=== PATIENT | female | born 1980 | race Caucasian/White ===

== ENCOUNTER 2016-08-20 10:40 | Outpatient (CLI) | payer OTHER ==
[~2016-08-20] VITALS: Ht 170.2 cm; Wt 46.8 kg
[~2016-08-20 10:40] MED LIST: PRENAT PO
[2016-08-20 10:53] VITALS: BP 135/96; PULSE 109; RESP 18; Ht 170.2 cm; Wt 46.8 kg
--- NOTE | 2016-08-20 12:08 | CONS ---
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 Size of the cyst has doubled ( 4 cm mid 2014 to 8 cm late 2015). May be amenable to endoscopic ultrasound- guided stenting/drainage. No indication for acute surgical intervention unless interventional GI not successful. Explained in detail and answered all questions. With above assessment, I have recommended the followin. Referral to interventional GI with plan for EUS-guided pancreatic duct stenting, possible transduodenal cyst drainage. I asked my office to assist with facilitating an expedited visit with Dr. Anthony Granados at [facility] (ccd on this letter) 2. F/u with us 2-3 months after above 3. Surgical intervention if above fails or for emergency picture 4. I was very clear that the patient needs to make drastic changes in her lifestyle since she is still drinking. I strongly advised her not to take any alcohol or substances that contain alcohol. She will likely need the support of her primary care physician team. Also, likely to remain disabled given her current cyst and abdominal symptoms until it has been adequately dealt with by hopefully non-surgical means as above 5. Possible consideration for laparoscopic cholecystectomy in the future and after above Thank you again for allowing us to participate in the care of this very pleasant lady and her wonderful family. If there are any questions, please feel free to call me at [phone]. TOTAL VISIT TIME: 45 minutes of which more than half was spent in [id number] discussion with the patient (no family present for this visit) as well as coordination of care between multiple physicians and providers. 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 Pancreas protocol CT 06/08/16 showed: Extensive calcification is seen throughout the pancreas and compatible with sequelae of chronic pancreatitis. There is a large 8.6 cm round circumscribed cyst of the pancreatic head most compatible with a large pseudocyst. Comorbidities: 1. Gestational Hypertension. 2. Ectopic Feb 2015. 3. Episode of pancreatitis Mar 2016. 5. H. Pylori. 6. 06/07/16. HISTORY OF PRESENT ILLNESS: The patient is a very pleasant 36-year-old lady, well known to me from prior admission to [facility] for her in May 2016, A1 with comorbid issue of ETOH abuse (full bottle of hard liquor or more per day up to 1.5 yrs ago), complicated by prior pancreatitis, being followed for known pancreas cyst, s/p 06/06/16. Visiting for recommended follow up. + pain; disabled; resumed drinking to control pain and be able to take care of her child. Gallbladder in place, but no history of biliary issues. ALLERGIES: NKDA. MEDICATIONS: 1. Pepcid 2. MVI 3. Acetaminophen SOCIAL HISTORY: + previous heavy ETOH (1 or more bottle of hear liquor per day up to 1.5 years ago). + tob. - IVDU FAMILY HISTORY: No major reported medical, surgical or malignancy in the family. REVIEW OF SYSTEMS: No pertinent positives or negatives in a complete 14 point review of systems PHYSICAL EXAMINATION: GENERAL: The patient appears to be a very pleasant lady of [place] descent, appearing stated age, laying in bed comfortably and in no acute distress. BMI 16.2 (previously 17.19 May 2016). VITAL SIGNS: AVSS (see EHR) HEENT: Her head is normocephalic and atraumatic. Her extraocular muscles and hearing are grossly intact bilaterally and symmetrically. Her sclerae are nonicteric. Her oral cavity is clear, and her oral mucosa appeared to be pink and moist. She has fair to poor dentition. NECK: Supple. There is no lymphadenopathy or JVD. There is no submental, submandibular or supraclavicular lymphadenopathy. CHEST: Rises symmetrically with each breath, and she is breathing comfortably. There are no audible wheezes, rales or rhonchi on the gross exam. HEART: Her carotid pulses are palpable bilaterally and symmetrically in her neck. Radial pulse is palpable on the right wrist. EXTREMITIES: Lower extremities contain no pitting edema around the ankles bilaterally and symmetrically. ABDOMEN: Soft, tender to palpation near mid abdomen where a mass can be felt, corresponding to known pancreas head cyst. There is no distention. There is no evidence of organomegaly, caput medusae, engorged subcutaneous veins or presence of ascites. No peritoneal signs or guarding, no evidence of hernia. SKIN: Appears to be pink and feels warm to touch. NEUROLOGIC: She is awake, alert and follows commands appropriately. LABORATORY VALUES: See below. IMAGING: Pertinent findings were reviewed above. Note that I personally reviewed all the available images, and I agree in general with their overall reported findings. Consultation Date/Type/Reason Admit Date/Time Initial Consult Date Exam/Review of Systems Vital Signs Vitals Vital Signs Date Time Temp Pulse Resp B/P Pulse Ox O2 Delivery O2 Flow Rate FiO2 08/20/16 10:53 98.5 109 18 135/96 96 Room Air MALINDA WALTERS M.D. Aug 20, 2016 12:03
== END 2016-08-20 17:00 | disposition home or self-care (01) ==
LOC: HPC 10:40
PROVIDERS: ATTEND Transplant Surgery
DX: K86.1 Other chronic pancreatitis (principal); K86.3 Pseudocyst of pancreas; F10.10 Alcohol abuse, uncomplicated; Y90.9 Presence of alcohol in blood, level not specified
CPT/HCPCS: G0463

== ENCOUNTER 2017-12-16 00:55 | Emergency (ER) | END 2017-12-16 05:28 | disposition home or self-care (01) ==

== ENCOUNTER 2018-04-16 15:26 | Emergency (ER) | END 2018-04-16 17:47 | disposition home or self-care (01) ==

== ENCOUNTER 2018-08-31 12:54 | Inpatient (IN) | payer OTHER ==
[~2018-08-31] VITALS: Ht 170.2 cm; Wt 53.6 kg
[~2018-08-31 12:54] MED LIST changes: -PRENAT PO; +TRAM50TA2 PO
[2018-08-31 12:58] VITALS: Ht 170.2 cm; Wt 53.6 kg
[2018-08-31 13:08] VITALS: BP 172/107; PULSE 83; RESP 18
[2018-08-31] MEDS ORDERED: PREN-93 PO (13:08)
--- NOTE | 2018-08-31 13:52 | TRIAGE ---
OB Triage Datetime Report Generated by CPN: 08/31/2018 13:52 Datetime: 08/31/2018 13:05 Assessment Type: Triage EGA: 32.4 Maternal Assessment Level of Consciousness: Fully Conscious DTR's/Clonus: DTRs 2+; No Clonus Headache: Denies Blurred Vision: No Respiratory Effort: Unlabored; Regular Rhythm; Equal Expansion Breath Sounds, Left: Clear and Equal Breath Sounds, Right: Clear and Equal Nausea/Vomiting: Denies RUQ Epigastric Pain: Denies Lower Extremities Edema: None Degree: None Upper Extremities Edema: None Degree: None Facial Edema: None Fall Risk Assessment History of Falling: (0) No Secondary Diagnosis: (0) No Ambulatory Aid: (0) Bedrest/Nurse Assist IV Therapy: (0) No Gait: (0) Normal/Bedrest/Immobile Mental Status: (0) Oriented to Own Ability Fall Score: 0 Fall Risk Score Definition: No Risk: No action required Datetime: 08/31/2018 13:04 Time of Arrival: 08/31/2018 12:51 Arrived By: Ambulatory; Wheelchair Arrived From: Home Chief Complaint: PT. HERE C/O VAG. BLEEDING AND H/A X 6 DAYS Movement: Decreased Contractions: Denies/Absent Rupture of Membranes: Denies Vaginal Bleeding: Moderate Vaginal Discharge: Denies Recent Sexual Intercouse: Denies Abdominal Trauma: Not Applicable Patient Complaints: Cramping Time Provider Notified: 08/31/2018 13:46 Provider Notified: DELSHAD Datetime: 08/31/2018 13:01 Labor Evaluation Monitor Mode: External Heart Rate Monitor Mode: External US
[2018-08-31] MEDS: LACTATED RINGER'S 1,000 ML IV SCH ×2 (14:12→18:55)
[2018-08-31] MEDS: DEXAMETHASONE 4 MG/ML 5 ML INJ IM SCH (15:42)
--- NOTE | 2018-08-31 18:23 | HP ---
Date/Time of Note Date/Time of Note DATE: 08/31/18 TIME: 18:20 OB - History Hx of Present Chief Complaint: vaginal bleeding Estimated Due Date: Oct 22, 2018 : 3 Para: 1 Spontaneous : 1 Therapeutic : 0 Care: Good Care Ultrasounds: Normal mid trimester US Obstetrical Complications: None Medical Complications: None Past Family/Social History * Past Medical, Surgical, Family and Obstetric Histories reviewed from chart. OB Admission Exam Vital Signs Vital Signs Vital Signs Date Temp Pulse Resp B/P (MAP) Pulse Ox O2 O2 Flow FiO2 Time Delivery Rate 08/31/18 98.0 83 18 172/107 Room Air 13:08 (128) Physical Exam HEENT: WNL Heart: Rhythm Normal Lungs: Clear, Equal Abdomen: WNL Extremities: Normal Reflexes: Normal Heart Rate: 120's Accelerations: Accelerations Present Decelerations: No Decelerations Varibility: Moderate Last 72 hours Lab Results CBC & BMP 08/31/18 14:00 Liver Function Test 08/31/18 14:00 Alanine Aminotransferase (ALT/SGPT) 12 L Albumin 3.3 Alkaline Phosphatase 132 H Aspartate Amino Transf (AST/SGOT) 18 Direct Bilirubin 0.00 Total Protein 6.2 OB Assessment/Plan Reason for admission: other Other Assessment: R/O preeclampsia Plan: Other Other plan: Admit PIH panel 24 hour urine collection Corticosteroids Perinatology consult Neonatology consult TREY SANCHEZ MD Aug 31, 2018 18:23
[2018-09-01] MEDS: LACTATED RINGER'S 1,000 ML IV SCH ×3 (03:30→21:13)
[2018-09-01] MEDS: DEXAMETHASONE 4 MG/ML 5 ML INJ IM SCH ×2 (04:16→15:18)
--- NOTE | 2018-09-01 20:35 | QN ---
Documentation Comment No complaint Afebrile VSS BP improved Strikp Reactive Continue to monitor BP. TREY SANCHEZ MD Sep 01, 2018 20:35
--- NOTE | 2018-09-01 21:10 | CONS ---
Consultation Date/Type/Reason Admit Date/Time Aug 31, 2018 at 13:38 Date of Consultation: Sep 01, 2018 Type of Consult Medicine Reason for Consultation Requested by Dr. Morales to certified lactation counselor mother regarding anticipated course and potential complications of delivery at 32 completed weeks gestation of a watts male fetus having received steroids. Met with mother at bedside. Mother is a 38 yo [id number] with EDC 10/22/2018 ( EGA 32 5/7 wks). Uncomplicated , except for chronic hypertension with non-compliance with medication and scant bleeding @ 3 months. No further bleeding until 08/31 when mother experienced bright red vaginal bleeding and was noted to be hypertensive. U/S 08/31 c/w dates with normal amniotic fluid indices and no evidence of abruption. BPP 02/17. No further bright red bleeding and now passing scant old blood. No further hypertension and 24 hr urinary protein WNL (187 mg/24 hrs). Completes course of Dexamethasone @ 0400 hrs 09/02. No magnesium or antibiotics. Discussed anticipated course of 32 wk gestation infants and high survival rates. Described complications primarily related to lung maturation and the need for pulmonary support, feeding difficulties associated with sharon-motor coordination, and infection. Briefly discussed less common complications related to apnea of prematurity, PDA, IVH, and termite exterminator neurosensory impairment. Explained that duration of hospitalization typically approaches 36 weeks corrected age but is dependent on cardiopulmonary stability, ability to nipple all feeds and demonstrate weight gain. Mother appeared to understand and asked appropriate questions. Assured mother of availability to any any further questions should they arise. Total time spent reviewing records and [id number] meeting with mother 40 minutes. Date/Time of Note DATE: 09/01/18 TIME: 20:17 Past Medical History Home Meds Reported Medications Vit No.124/Iron/FA ( Vitamin Tablet) 1 Each Tablet, 1 EACH PO DAILY, TAB 08/31/18 Discontinued Scripts Tramadol HCl (Tramadol HCl) 50 Mg Tablet, 50 MG PO Q6 PRN for SEVERE PAIN LEVEL 7-10, #20 TAB Prov:SONIA GARZA NP 12/16/17 Medications Current Medications Lactated Ringer's 1,000 ml @ 125 mls/hr Q8H IV Last administered on 09/01/18at 12:36; Admin Dose 125 MLS/HR; Start 08/31/18 at 13:51 Dexamethasone (Decadron) 6 mg Q12H IM Last administered on 09/01/18at 15:18; Admin Dose 6 MG; Start 08/31/18 at 14:00; Stop 09/02/18 at 02:01 Allergies: Coded Allergies: No Known Allergy (Unverified , 04/08/16) Social History Smoking Status: Current every day smoker Exam/Review of Systems Exam Vitals Vital Signs Date Temp Pulse Resp B/P (MAP) Pulse Ox O2 O2 Flow FiO2 Time Delivery Rate 08/31/18 98.0 83 18 172/107 Room Air 13:08 (128) Intake and Output 08/31/18 08/31/18 09/01/18 1414:59 22:59 06:59 IntakeIntake Total 1000 ml 1000 ml OutputOutput Total 250 ml BalanceBalance 750 ml 1000 ml Results Result Diagram: 09/01/18 0524 09/01/18 0524 Results 24hrs Laboratory Tests Test 09/01/18 05:24 09/01/18 16:00 White Blood Count 7.6 Red Blood Count 3.20 L Hemoglobin 10.1 L Hematocrit 30.2 L Mean Corpuscular Volume 94.4 Mean Corpuscular Hemoglobin 31.6 Mean Corpuscular Hemoglobin Concent 33.4 Red Cell Distribution Width 11.9 Platelet Count 212 Mean Platelet Volume 10.2 Immature Granulocytes % 0.500 H Neutrophils % 67.6 Lymphocytes % 24.6 Monocytes % 6.9 Eosinophils % 0.1 Basophils % 0.3 Nucleated Red Blood Cells % 0.0 Immature Granulocytes # 0.040 H Neutrophils # 5.1 Lymphocytes # 1.9 Monocytes # 0.5 Eosinophils # 0.0 Basophils # 0.0 Nucleated Red Blood Cells # 0.0 Sodium Level 137 Potassium Level 3.6 Chloride Level 107 Carbon Dioxide Level 21 Anion Gap 9 # Blood Urea Nitrogen 8 Creatinine 0.41 L Est Glomerular Filtrat Rate mL/min > 60 Glucose Level 137 # Uric Acid 4.3 Calcium Level 8.5 Total Bilirubin 0.0 L Direct Bilirubin 0.00 Indirect Bilirubin 0.0 Aspartate Amino Transf (AST/SGOT) 13 L Alanine Aminotransferase (ALT/SGPT) 17 Alkaline Phosphatase 98 Total Protein 5.2 #L Albumin 2.5 L Globulin 2.70 Albumin/Globulin Ratio 0.92 Urine Random Creatinine 59.01 Urine Collection Duration 24 Urine Total Volume 24 Hours 1700 Urine Creatinine Timed 24 Creatinine Clearance 169.9 H Urine Total Volume (Protein) 1700 Urine Total Protein 24 Hour 187.0 Medications Medication Current Medications Lactated Ringer's 1,000 ml @ 125 mls/hr Q8H IV Last administered on 09/01/18at 12:36; Admin Dose 125 MLS/HR; Start 08/31/18 at 13:51 Dexamethasone (Decadron) 6 mg Q12H IM Last administered on 09/01/18at 15:18; Admin Dose 6 MG; Start 08/31/18 at 14:00; Stop 09/02/18 at 02:01 EJ MOJICA MD Sep 01, 2018 21:09
--- NOTE | 2018-09-02 01:02 | CONS ---
DATE OF ADMISSION: 08/31/2018 DATE OF CONSULTATION: 09/01/2018 HISTORY OF PRESENT ILLNESS: The patient is a G2, P1 at 32 weeks and 5 days, admitted with elevated s evere range blood pressures. Her blood pressures initially she had 1 or 2 severe range blood pressur es; however after that has been normal to moderate range. She does not have symptoms. She has been chronic hypertensive for about 5 years and she has been on and off on medication, but currently is no t on medication nor she been during the . She currently lives in a fdc with her 2-year- old and her . OBSTETRIC HISTORY: Chronic hypertension. Her first was a vaginal delivery with no complic ations. VITAL SIGNS: Currently, blood pressure is 142/90. Physical examination deferred. heart tones are reassuring for gestational age. LABORATORY RESULTS: AST, ALT, platelets are normal. A 24-hour urine for protein is pending. IMPRESSION: Intrauterine at 32 weeks and 5 days with chronic hypertension, pending 24-hour urine for protein result, is currently severe hypertension at the time of admission with the rest is in the normal to moderate range without symptoms. She lives in a fdc, has a 2-year-old to take care of and overall she has a stressful situation ob viously, noncompliant with medication than she was on it. She is receiving dexamethasone. RECOMMENDATIONS: I do recommend the patient to stay in-house at least until 34 weeks. Delivery is recommended if she has severe superimposed preeclampsia then delivery at 34 weeks. If sh e has any type of symptoms, GI, neurologic or right upper quadrant pain or platelet count of less keyur n 100,000 or nonreassuring heart tones, then delivery at the time of diagnosis. In the absence of any of them, then delivery at 37 weeks. I do recommend social service consult to help the patient navigate her overall taking care of her 2-y ear-old, so she is able to stay in-house until 34 weeks. Again with chronic hypertension or mild preeclampsia, delivery at 37 weeks. If with severe preeclamp khanh, delivery at 34 weeks unless there are GI, neurologic or right upper quadrant pain or respiratory symptoms or nonreassuring heart tone or thrombocytopenia with platelet count of less than 100, 000, then delivery at the time of diagnosis. Dictated By: KELBY BENITO/HEIDI Conf#: [id number] [facility]#: [id number] CC: MARLEN FLORES MD; TREY SANCHEZ MD;*[facility]*
[2018-09-02] MEDS ORDERED: ACETAMINOPHEN 500 MG TAB PO ONE (01:30)
[2018-09-02] MEDS: DEXAMETHASONE 4 MG/ML 5 ML INJ IM SCH (04:31)
[2018-09-02] MEDS: LACTATED RINGER'S 1,000 ML IV SCH ×3 (05:03→22:25)
--- NOTE | 2018-09-02 19:11 | QN ---
Documentation Comment No complaint Afebrile VSS Strip Reactive Stable Continue with in hospital care Social service consult Amoxicillin for UTI Monistat for Tawana TREY SANCHEZ MD Sep 02, 2018 19:11
[2018-09-02] MEDS: AMOXICILLIN 500 MG CAP PO SCH (21:55)
[2018-09-02] MEDS ORDERED: AL HYDROX/MG HYDROX/SIMETH 30 ML CUP PO PRN (22:00)
[2018-09-02] MEDS: MICONAZOLE 100 MG VAG SUPP VAG SCH (22:10)
[2018-09-02] MEDS: ACETAMINOPHEN 325 MG TAB PO PRN (23:02)
[2018-09-03] MEDS: AMOXICILLIN 500 MG CAP PO SCH ×3 (06:57→21:51)
[2018-09-03] MEDS: LACTATED RINGER'S 1,000 ML IV SCH ×3 (07:03→23:41)
[2018-09-03] MEDS: ACETAMINOPHEN 325 MG TAB PO PRN ×2 (09:52→22:01)
[2018-09-03] MEDS: MICONAZOLE 100 MG VAG SUPP VAG SCH (21:00)
[2018-09-04] MEDS: AMOXICILLIN 500 MG CAP PO SCH ×3 (05:59→22:54)
[2018-09-04] MEDS: LACTATED RINGER'S 1,000 ML IV SCH ×2 (08:16→16:01)
--- NOTE | 2018-09-04 14:16 | QN ---
Documentation Comment No complaint Afebrile VSS Strip Reactive Plt, AST and ALT normal Continue with in hospital care. TREY SANCHEZ MD Sep 04, 2018 14:16
[2018-09-04] MEDS ORDERED: LABETALOL 200 MG TAB PO ONE (15:00)
[2018-09-04] MEDS: ACETAMINOPHEN 325 MG TAB PO PRN (16:59)
[2018-09-04] MEDS: MICONAZOLE 100 MG VAG SUPP VAG SCH (21:00)
[2018-09-04] MEDS: LABETALOL 200 MG TAB PO SCH (22:19)
[2018-09-05] MEDS: LACTATED RINGER'S 1,000 ML IV SCH ×4 (00:17→21:51)
[2018-09-05] MEDS: AMOXICILLIN 500 MG CAP PO SCH ×3 (06:12→23:02)
[2018-09-05] MEDS: LABETALOL 200 MG TAB PO SCH ×2 (09:32→21:13)
--- NOTE | 2018-09-05 17:40 | QN ---
Documentation Comment No complaint Afebrile BP increased, labetalol was started to control BP Strip Reactive Continue with in hospital care. TREY SANCHEZ MD Sep 05, 2018 17:40
[2018-09-05] MEDS: ACETAMINOPHEN 325 MG TAB PO PRN (20:31)
[2018-09-05] MEDS: MICONAZOLE 100 MG VAG SUPP VAG SCH (21:13)
[2018-09-06] MEDS: LACTATED RINGER'S 1,000 ML IV SCH ×3 (00:50→21:51)
[2018-09-06] MEDS: AMOXICILLIN 500 MG CAP PO SCH ×3 (05:59→21:19)
[2018-09-06] MEDS: LABETALOL 200 MG TAB PO SCH ×2 (08:22→21:20)
[2018-09-06] MEDS: ACETAMINOPHEN 325 MG TAB PO PRN ×2 (09:53→21:22)
--- NOTE | 2018-09-06 19:32 | QN ---
Documentation Comment No complaint Afebrile VSS Strip Reactive stable Continue with in hospital care. TREY SANCHEZ MD Sep 06, 2018 19:32
[2018-09-06] MEDS: MICONAZOLE 100 MG VAG SUPP VAG SCH (21:23)
[2018-09-07] MEDS: AMOXICILLIN 500 MG CAP PO SCH (06:18)
[2018-09-07] MEDS: LABETALOL 200 MG TAB PO SCH (08:30)
[2018-09-07] MEDS: LACTATED RINGER'S 1,000 ML IV SCH (09:51)
[2018-09-07] MEDS ORDERED: LACTATED RINGER'S 1,000 ML IV SCH ×2 (11:06→16:16)
[2018-09-07] MEDS ORDERED: CEFAZOLIN 2 GM/50 ML (PMX) 50 ML IVPB ONE (11:09)
[2018-09-07] MEDS ORDERED: ONDANSETRON 4 MG INJ IV STA (11:16)
[2018-09-07] MEDS ORDERED: METOCLOPRAMIDE 10 MG INJ ONE (11:16)
[2018-09-07] MEDS ORDERED: ONDANSETRON 4 MG INJ ONE (11:17)
[2018-09-07] MEDS ORDERED: CITRIC ACID/NA CITRATE 30 ML CUP ONE (11:18)
[2018-09-07] MEDS ORDERED: METOCLOPRAMIDE 10 MG INJ IV ONE (11:20)
--- NOTE | 2018-09-07 11:24 | QN ---
Documentation Comment Patient c/o vaginal bleeding and pelvic pain. On exam, active vaginal bleeding noted. Patient was evaluated by Dr Pro ([facility]) who recommends to deliver the patient at this time. Patient is counseled for repeat . Risks, benefits and alternatives were explained to the patient who stated she understood and gave informed consent for the procedure. TREY SANCHEZ MD Sep 07, 2018 11:24
--- NOTE | 2018-09-07 11:29 | PREAC ---
Date/Time of Note Date/Time of Note DATE: 09/07/18 TIME: : Anesthesia Eval and Record Evaluation Time Pre-Procedure Interview DATE: 09/07/18 TIME: 11:27 Age 38 Sex female NPO: Other 1 hour Preoperative diagnosis repeat c section, bleeding Planned procedure c section Past Medical History Past Medical History: Includes Cardio: HTN Surgery & Anesthesia Issues No known issue Meds Anticoagulation: No Beta Cornelius within 24 hr: Yes Reported Medications Vit No.124/Iron/FA ( Vitamin Tablet) 1 Each Tablet, 1 EACH PO DAILY, TAB 08/31/18 Discontinued Scripts Tramadol HCl (Tramadol HCl) 50 Mg Tablet, 50 MG PO Q6 PRN for SEVERE PAIN LEVEL 7-10, #20 TAB Prov:SONIA GARZA SOCIAL SERVICES SPECIALIST 12/16/17 Current Medications Lactated Ringer's 1,000 ml @ 125 mls/hr Q8H IV Last administered on 09/07/18at 09:51; Admin Dose 125 MLS/HR; Start 08/31/18 at 13:51 Amoxicillin (Amoxicillin) 500 mg Q8 PO Last administered on 09/07/18at 06:18; Admin Dose 500 MG; Start 09/02/18 at 22:00 Miconazole (Monistat-7) 1 supp HS VAG Last administered on 09/06/18at 21:23; Admin Dose 1 SUPP; Start 09/02/18 at 21:00; Stop 09/08/18 at 21:01 Acetaminophen (Tylenol Tab) 650 mg Q6H PRN PO MILD PAIN(1-3)OR ELEVATED TEMP Last administered on 09/06/18at 21:22; Admin Dose 650 MG; Start 09/02/18 at 22:00 Al Hydrox/Mg Hydrox/Simethicone (Mag-Al Plus) 30 ml Q6H PRN PO GASTROINTESTINAL UPSET; Start 09/02/18 at 22:00 Labetalol HCl (Normodyne) 200 mg BID PO Last administered on 09/07/18at 08:30; Admin Dose 200 MG; Start 09/04/18 at 21:00 Lactated Ringer's 1,000 ml @ 125 mls/hr Q8H IV ; Start 09/07/18 at 11:06 Cefazolin Sodium/ Dextrose 50 ml @ 100 mls/hr ONCE IVPB ; Start 09/07/18 at 11:30 Oxytocin/Lactated Ringer's 500 ml @ 0 mls/hr ONCE PRN IV .VAGINAL BLEEDING; Start 09/07/18 at 11:30 Methylergonovine Maleate (Methergine) 0.2 mg ONCE PRN IM .VAGINAL BLEEDING; Start 09/07/18 at 11:30 Carboprost Tromethamine (Hemabate) 250 mcg ONCE PRN IM .VAGINAL BLEEDING; Start 09/07/18 at 11:30 Misoprostol (Cytotec) 1,000 mcg ONCE PRN VA .VAGINAL BLEEDING; Start 09/07/18 at 11:30 Citric Acid/ Sodium Citrate (Bicitra) 30 ml ONCE ONCE PO ; Start 09/07/18 at 11:30; Stop 09/07/18 at 11:31 Meds reviewed: Yes Allergies Coded Allergies: No Known Allergy (Unverified , 04/08/16) Allergies Reviewed: Yes Labs/Studies Labs Reviewed: Reviewed by anesthesiologist Result Diagram: 09/07/18 0633 09/07/18 0632 Laboratory Tests 09/07/18 06:32 Blood Bank Test 09/07/18 10:05 Antibody Screen NEGATIVE Blood Type O POSITIVE test: Positive Studies: ECG (n/a), CXR (n/a) Pre-procedure Exam Last vitals Vital Signs Date Temp Pulse Resp B/P (MAP) Pulse Ox O2 O2 Flow FiO2 Time Delivery Rate 09/05/18 98.5 21:14 Airway: Adequate mouth opening Mallampati: Mallampati I Teeth: Normal Lung: Normal Heart: Normal ASA Physical Status ASA physical status: 2 Emergency: E Planned Anesthetic Neuraxial: Spinal Planned Pain Management Sub-arachniod narcotics Pre-operative Attestations Prior to commencing anesthesia and surgery, the patient was re-evaluated, there was verification of: *The patient's identity *The results of appropriate recent lab work and preoperative vital signs *The above evaluation not changing prior to induction *Anesthetic plan, risk benefits, alternative and complications discussed with patient/family; questions answered; patient/family understands, accepts and wishes to proceed. SHEYLA CORONA MD Sep 07, 2018 11:29
[2018-09-07] MEDS ORDERED: CITRIC ACID/NA CITRATE 30 ML CUP PO ONE (11:30)
[2018-09-07] MEDS ORDERED: CEFAZOLIN 2 GM/50 ML (PMX) 50 ML IVPB SCH (11:30)
[2018-09-07] MEDS ORDERED: OXYTOCIN 30 UNITS/LR 500 ML IV PRN ×2 (11:30→16:30)
[2018-09-07] MEDS ORDERED: MISOPROSTOL 200 MCG TAB PR PRN ×2 (11:30→16:30)
[2018-09-07] MEDS ORDERED: METHYLERGONOVINE 0.2 MG INJ IM PRN (11:30)
[2018-09-07] MEDS ORDERED: CARBOPROST 250 MCG INJ IM PRN ×2 (11:30→16:30)
[2018-09-07] MEDS ORDERED: KETOROLAC 30 MG INJ ONE (11:34)
[2018-09-07] MEDS ORDERED: morphine SULFATE/PF (10 MG/10 ML) INJ ONE (11:34)
[2018-09-07] MEDS ORDERED: KETOROLAC 30 MG INJ IV PRN (12:30)
[2018-09-07] MEDS ORDERED: NALOXONE (0.4 MG/ML) INJ IV PRN (12:30)
[2018-09-07] MEDS ORDERED: DIPHENHYDRAMINE 50 MG INJ IV PRN ×2 (12:30)
[2018-09-07] MEDS ORDERED: ONDANSETRON 4 MG INJ IV PRN ×2 (12:30)
[2018-09-07] MEDS ORDERED: morphine 2 MG INJ IV PRN ×3 (12:30)
[2018-09-07] MEDS ORDERED: morphine (1 MG/ML) 10ML SYRINGE IV PRN ×3 (12:30)
[2018-09-07] MEDS ORDERED: FAMOTIDINE 20 MG INJ ONE (12:43)
[2018-09-07] MEDS ORDERED: OXYTOCIN 30 UNITS/LR 500 ML IV SCH ×2 (13:30→16:16)
--- NOTE | 2018-09-07 13:49 | OPR ---
Operative Report Planned Procedure Procedure date Sep 07, 2018 Procedure(s) Repeat low transverse Performed by Trey Sanchez MD Buffet Server: JORDAN JAMES M.D. 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 A Pfannenstiel incision was made through the abdomen an d carried down to the level of the fascia. The fascia was incised transversely and then the rectus muscle was dissected off the fascia and split bluntly in the midline. The peritoneum was the entered bluntly. The bladder flap was created and then a low segment transverse incision was made with a knife on the uterus until the amniotic fluid was encountered. The incision was widened with bandage scissors. A hand was inserted elevating the vertex and then the head delivered with assistance of fundal pressure.. The nares and oropharynx were bulb suctioned, and the remainder of the was delivered out of the maternal abdomen. . The cord was doubly clamped and cut, and the infant handed off to the awaiting resuscitation team who was present for delivery. The placenta was then manually extracted and the interior uterus was cleaned with a dry lap sponge. The uterus was exteriorized, and the incision of the uterus closed with a running interlocking stitch of Monocryl suture. The uterus was replaced in the maternal abdomen. The abdomen was cleared of clots. The peritoneum was closed with 2-0 Vicryl. The fascia was closed with a running suture of #1 Vicryl suture meeting in the midline. The subcutaneous tissue was made hemostatic with Bovie cautery, and the skin approximated using herrera. The patient tolerated the procedure well. All sponge and instrument counts were correct. She was taken to the recovery room in stable condition. TREY SANCHEZ MD Sep 07, 2018 13:49
[2018-09-07 16:15] VITALS: BP 133/80; PULSE 61; RESP 17
[2018-09-07] MEDS ORDERED: OXYCODONE/ACETAMINOPHEN (5/325) TAB PO PRN (16:30)
[2018-09-07] MEDS ORDERED: LANOLIN HPA 1 PKT TOP PRN (16:30)
[2018-09-07 19:25] VITALS: BP 131/80; PULSE 73; RESP 18
[2018-09-07] MEDS: SENNA/DOCUSATE NA (8.6MG/50MG) TAB PO SCH (21:00)
--- NOTE | 2018-09-07 21:06 | PAC ---
Date/Time of Note Date/Time of Note DATE: 09/07/18 TIME: 21:06 Post-Anesthesia Notes Post-Anesthesia Note Last documented vital signs Vital Signs Date Temp Pulse Resp B/P (MAP) Pulse Ox O2 O2 Flow FiO2 Time Delivery Rate 09/07/18 98.1 73 18 131/80 98 Room Air 19:25 (97) Activity: WNL Respiratory function: WNL Cardiovascular function: WNL Mental status: Baseline Pain reasonably controlled: Yes Hydration appropriate: Yes Nausea/Vomiting absent: No SHEYLA CORONA MD Sep 07, 2018 21:06
[2018-09-07] MEDS: KETOROLAC 30 MG INJ IV PRN (21:54)
[2018-09-07 23:50] VITALS: BP 120/75; PULSE 60; RESP 18
[2018-09-08] VITALS (13 sets, daily range): BP systolic 112–175; BP diastolic 60–100; PULSE 61–83; RESP 16–18
[2018-09-08] MEDS: LACTATED RINGER'S 1,000 ML IV SCH ×2 (00:46→09:12)
[2018-09-08] MEDS: KETOROLAC 30 MG INJ IV PRN (04:16)
--- NOTE | 2018-09-08 06:55 | OPPN ---
Date/Time of Note Date/Time of Note DATE: 09/08/18 TIME: 06:54 Anesthesia Follow up Anesthesia Follow up Last documented vital signs Vital Signs Date Temp Pulse Resp B/P (MAP) Pulse Ox O2 O2 Flow FiO2 Time Delivery Rate 09/08/18 97.8 72 18 112/68 98 Room Air 04:16 (83) Respiratory function: WNL Cardiovascular function: WNL Comments A 38 year emale. with spinal duramorph for post op pain POD#1 is doing well. No headache, itching, N/V, pain, neural deficit. SHEYLA CORONA MD Sep 08, 2018 06:55
[2018-09-08] MEDS: SENNA/DOCUSATE NA (8.6MG/50MG) TAB PO SCH ×2 (09:10→21:00)
[2018-09-08] MEDS: IBUPROFEN 800 MG TAB PO SCH ×2 (14:08→22:00)
[2018-09-08] MEDS: OXYCODONE/ACETAMINOPHEN (5/325) TAB PO PRN ×2 (18:43→22:36)
--- NOTE | 2018-09-08 19:15 | PN ---
Date/Time of Note Date/Time of Note DATE: 09/08/18 TIME: 19:12 OB Subjective Subjective Subjective POD#1 Patient is doing well. She denies nausea, vomiting, shortness of breath, chest pain, headache. She has been ambulating without difficulty, tolerating regular diet. Pain is well controlled on current medications OB Objective Objective Objective Vital Signs Date Temp Pulse Resp B/P (MAP) Pulse Ox O2 O2 Flow FiO2 Time Delivery Rate 09/08/18 98.2 73 16 145/84 Room Air 16:30 (104) 09/08/18 99 07:40 General: AAO X 3, comfortable, NAD, appropriate mood and affect. Heart: RRR +S1, +S2, no murmurs. Lungs: Clear to auscultation (B/L), no rales, rhonchi or wheezing. ABD: +BS. Soft, non-tender. Uterus 2 cm below umbilicus Incision: Clear, dry, intact. No erythema, drainage or induration. Flank: No CVA tenderness (B/L) LE: Mild edema. No clubbing, cyanosis, thigh or calf tenderness (B/L). Homans 'sign is negative OB Assessment/Plan Other plan: 38-year-old s/p repeat delivery at 33 weeks and 4 days for preeclampsia with severe features. POD#1 - AF, VSS - Encourage ambulation - Continue current management - Follow up with PATRICIA Hayes Sep 08, 2018 19:15
[2018-09-08] MEDS ORDERED: LABETALOL 200 MG TAB PO ONE (20:30)
[2018-09-09] MEDS: OXYCODONE/ACETAMINOPHEN (5/325) TAB PO PRN ×4 (02:30→21:47)
[2018-09-09 03:45] VITALS: BP 118/65; PULSE 75; RESP 18
[2018-09-09] MEDS: IBUPROFEN 800 MG TAB PO SCH ×3 (06:00→21:49)
[2018-09-09 08:45] VITALS: BP 143/70; PULSE 71; RESP 17
[2018-09-09] MEDS: LABETALOL 200 MG TAB PO SCH ×2 (08:47→21:47)
[2018-09-09] MEDS: SENNA/DOCUSATE NA (8.6MG/50MG) TAB PO SCH ×2 (08:49→21:00)
[2018-09-09 10:00] VITALS: BP 136/83; PULSE 85
[2018-09-09 16:00] VITALS: BP 139/84; PULSE 72; RESP 16
--- NOTE | 2018-09-09 18:33 | QN ---
Documentation Comment No complaint Afebrile VSS Abdomen soft Incision intact POD #2 Stable Continue present care. TREY SANCHEZ MD Sep 09, 2018 18:33
[2018-09-09 19:45] VITALS: BP 145/83; PULSE 73; RESP 18
[2018-09-10] VITALS (11 sets, daily range): BP systolic 132–173; BP diastolic 80–100; PULSE 73–85; RESP 14–18
[2018-09-10] MEDS: IBUPROFEN 800 MG TAB PO SCH ×3 (06:00→22:00)
[2018-09-10] MEDS ORDERED: DIPHTH/TET/ACEL PERTUSS (ADULT) 0.5 ML VIAL IM* ONE (09:00)
[2018-09-10] MEDS: LABETALOL 200 MG TAB PO SCH ×2 (09:13→20:27)
[2018-09-10] MEDS: SENNA/DOCUSATE NA (8.6MG/50MG) TAB PO SCH ×2 (09:13→21:00)
[2018-09-10] MEDS: OXYCODONE/ACETAMINOPHEN (5/325) TAB PO PRN ×2 (09:14→20:28)
[2018-09-10] MEDS ORDERED: LABETALOL 200 MG TAB PO ONE (16:00)
--- NOTE | 2018-09-10 20:07 | QN ---
Documentation Comment Patient's BP has been increasing despite being on labetalol. Patient requests to go home. Patient is counseled about the potential complications of HTN including but not limited to epilepsy, CVA. Patient is advised to stay in hospital for further management of her hypertension. TREY SANCHEZ MD Sep 10, 2018 20:07
[2018-09-11] VITALS (16 sets, daily range): BP systolic 137–174; BP diastolic 74–107; PULSE 63–99; RESP 14–18
[2018-09-11] MEDS: OXYCODONE/ACETAMINOPHEN (5/325) TAB PO PRN ×3 (05:33→18:21)
[2018-09-11] MEDS: IBUPROFEN 800 MG TAB PO SCH ×2 (06:00→14:00)
[2018-09-11] MEDS: NIFEdipine (XL) 30 MG TAB PO SCH ×2 (08:11→20:09)
[2018-09-11] MEDS: SENNA/DOCUSATE NA (8.6MG/50MG) TAB PO SCH (08:11)
[2018-09-11] MEDS ORDERED: WITCH HAZEL/GLYCERIN PAD PR PRN (13:00)
[2018-09-11] MEDS ORDERED: DIBUCAINE 1% 30 GM OINT TOP PRN (13:00)
--- NOTE | 2018-09-11 18:13 | QN ---
Documentation Comment No complaint Afebrile BP still elevated Patient was given Procardia and BP still elevated. Will ad hydralazine. TREY SANCHEZ MD Sep 11, 2018 18:13
--- NOTE | 2018-09-14 19:04 | DS ---
Date/Time of Note Date/Time of Note DATE: 09/14/18 TIME: 19:02 Obstetrical Discharge Record Final Diagnosis Final Diagnosis: delivered Other Final Diagnosis Preeclampsia with severe features Abruptio placentae Signed out against medical advice Section Section: Repeat Complications Other (Preeclampsia with severe features) Third Trimester Bleeding: Abruptio Condition on Discharge Physical Assessment Voiding: Yes Bowel Movement: Yes Breast: Soft, non-tender, Filling Fundus: Firm Calf Tenderness: No Patient Condition: Guarded TREY SANCHEZ MD Sep 14, 2018 19:04
== END 2018-09-11 20:10 | disposition left against medical advice (07) | DRG 786 ==
LOC: OBT 12:54 → L-D 12:55 → OBT 14:43 → L-D 16:14 → PP1 09-06 09:07 → L-D 09-07 10:54 → PP1 09-07 15:55
PROVIDERS: ADMIT Obstetrics & Gynecology; ATTEND Obstetrics & Gynecology
PROC: 10D00Z1 Extraction of Products of Conception, Low, Open Approach (ICD-10-PCS; principal; 2018-09-07 11:30)
DX: O34.211 Maternal care for low transverse scar from previous cesarean delivery (principal); O60.14X0 Preterm labor third trimester with preterm delivery third trimester, not applicable or unspecified; O14.13 Severe pre-eclampsia, third trimester; O45.93 Premature separation of placenta, unspecified, third trimester; Z3A.33 33 weeks gestation of pregnancy; Z37.0 Single live birth
CPT/HCPCS: 76815; 76818; 80053; 80307; 81001; 82575; 84156; 84560; 85025; 85384; 85610; 85730; 86592; 86850; 86900; 86901; 87086; 87340; 88307; 99464; G0463; J0690; J1100; J1200; J1885; J2274; J2405; J2590; J2765; J7120

== ENCOUNTER 2019-03-06 21:42 | Emergency (ER) | payer OTHER ==
[~2019-03-06] VITALS: Ht 165.1 cm; Wt 46.2 kg
[~2019-03-06 21:42] MED LIST changes: +ACET325T33 PO; +PREN-93 PO; -TRAM50TA2 PO
[2019-03-06 21:51] VITALS: Ht 165.1 cm; Wt 46.2 kg
[2019-03-06] MEDS ORDERED: ACETAMINOPHEN 325 MG TAB PO ONE (22:30)
[2019-03-06 22:59] VITALS: BP 150/109; PULSE 89; RESP 20
== END 2019-03-06 23:00 | disposition home or self-care (01) ==
LOC: E/R 21:42
DX: S00.03XA Contusion of scalp, initial encounter (principal); I10 Essential (primary) hypertension; V86.39XA Unspecified occupant of other special all-terrain or other off-road motor vehicle injured in traffic accident, initial encounter
CPT/HCPCS: Z7502; Z7610; 99282